=== PATIENT | male | born 1980 | race Caucasian/White ===

== ENCOUNTER 2021-03-14 09:10 | Emergency (ER) | payer OTHER, SELFPAY ==
--- NOTE | 2021-03-14 09:12 | ED.EAR ---
HPI - Ear Problem General Chief complaint: Ear Stated complaint: ear pain Time Seen by Provider: 03/14/21 09:13 Source: patient and RN notes reviewed History of Present Illness HPI Narrative: Patient is a 40-year-old male who presents the urgent care with complaints of left ear pain. Patient states it started approximately 3 or 4 days ago and he denies of any pain at this time but wants to make sure he does not have an infection . Patient states that he had multiple tubes placed in the bilateral ears when he was younger. Denies of any recent issues with ear infection. States that he did use some old hydrocortisone eardrops to the left ear over the last few days with improvements. Patient has also been taking Johanny-D, Flonase and ibuprofen. Denies of any fever, chills, nausea, vomiting, drainage. No other acute complaints. No acute distress noted. Patient aware of the plan of care. Some parts of this dictation were generated by voice recognition software and may contain typographical and/or grammatical inaccuracies. Related Data Home Medications Medication Instructions Recorded Confirmed fexofenadine-pseudoephedrine 1 tablet PO Q12H PRN 03/14/21 03/14/21 [Johanny-D 12 Hour] fluticasone propionate [Flonase 2 spray INTRANASAL DAILY 03/14/21 03/14/21 Allergy Relief] Allergies Allergy/AdvReac Type Severity Reaction Status Date / Time No Known Allergies Allergy Verified 03/14/21 09:23 Review of Systems Review of Systems: Narrative: CONSTITUTIONAL: Denies fever, chills, or sweats. EYES: Denies visual changes, redness, or discharge. ENT: Reports of left otalgia CARDIOVASCULAR: Denies chest pain, palpitations, or edema. RESPIRATORY: Denies cough or dyspnea. GASTROINTESTINAL: Denies abdominal pain, nausea, vomiting, or diarrhea. GENITOURINARY: Denies dysuria or hematuria. SKIN: Denies rash or itching. MUSCULOSKELETAL: Denies back pain, joint pain, or myalgia. NEUROLOGIC: Denies headache, numbness, or weakness. All other systems reviewed are negative, except as documented in HPI. PMFSH Comments At the time of my signature, I reviewed and agree with the nursing past medical, surgical, social, and family history. There is no relevant family history pertinent to the patient complaint. Exam Narrative: Exam Narrative: GENERAL: This is a well-nourished, well-developed patient, in no apparent distress. HEAD: normocephalic, atraumatic. EYES: PERRL. Sclera clear/white. Vision is grossly intact. EARS: External ears normal, auditory canals clear and without drainage, TMs normal without perforation. Hearing grossly intact. NOSE: External nose normal with no obvious nasal discharge, nares without redness, no rhinorrhea. THROAT: Mucous membranes moist, posterior pharynx clear. NECK: Neck supple CARDIOVASCULAR: Regular rate and rhythm without murmurs, gallops, or rubs. RESPIRATORY: Clear to auscultation. Breath sounds equal bilaterally. No wheezes, rales, or rhonchi. SKIN: warm, intact with no suspicious lesions or rash, good texture and turgor. NEURO: awake, alert, and oriented to person, place and time. There were no obvious focal neurologic abnormalities. EXTREMITIES: No clubbing, cyanosis, or edema. Course Vital Signs Vital signs: Vital Signs Temperature 99 F 03/14/21 09:15 Pulse Rate 86 03/14/21 09:15 Respiratory Rate 18 03/14/21 09:15 Blood Pressure 124/79 03/14/21 09:15 Pulse Oximetry 100 03/14/21 09:15 Temperature 99 F 03/14/21 09:15 Pulse Rate 86 03/14/21 09:15 Respiratory Rate 18 03/14/21 09:15 Blood Pressure 124/79 03/14/21 09:15 Pulse Oximetry 100 03/14/21 09:15 Reviewed Medical Decision Making MDM Narrative Medical decision making narrative: Advised the patient to continue using his Johanny-D as well as Flonase nasal spray. Use Tylenol/ibuprofen as needed for pain. Do not put anything in the ear such as eardrops, peroxide, Q-tips. There is no ear infection noted to t
[2021-03-14 09:15] VITALS: BP 124/79; PULSE 86; RESP 18; TEMP 37.2; O2SAT 100
== END 2021-03-14 09:29 | disposition home or self-care (01) ==
PROVIDERS: Emergency Provider Nurse Practitioner Family
DX: H92.02 Otalgia, left ear (principal)
CPT/HCPCS: 99211; G0463

== ENCOUNTER 2021-03-27 15:09 | Emergency (ER) | payer SELFPAY ==
[2021-03-27 15:14] VITALS: BP 113/81; PULSE 79; RESP 20; TEMP 36.8; O2SAT 99
--- NOTE | 2021-03-27 16:04 | ED.URI ---
HPI - URI/Sore Throat General Chief Complaint: Upper Respiratory Infection Stated Complaint: Possible left Ear infection and congestion Time Seen by Provider: 03/27/21 15:52 Source: patient and RN notes reviewed Mode of arrival: ambulatory Limitations: no limitations History of Present Illness HPI Narrative: Patient presents today complaining of left ear pain since this morning. Denies any additional symptoms to include cough, sore throat, fever, congestion. Currently rates his pain 3/10. Patient normally takes Johanny-D and Flonase for his seasonal allergies. History of ear tubes as a child. Denies any drainage or decreased hearing. MD elicited complaint: other (Ear pain) Related Data Home Medications Medication Instructions Recorded Confirmed fexofenadine-pseudoephedrine 1 tablet PO Q12H PRN 03/14/21 03/14/21 [Johanny-D 12 Hour] fluticasone propionate [Flonase 2 spray INTRANASAL DAILY 03/14/21 03/14/21 Allergy Relief] Allergies Allergy/AdvReac Type Severity Reaction Status Date / Time No Known Allergies Allergy Verified 03/14/21 09:23 Review of Systems Review of Systems: Narrative: CONSTITUTIONAL: Denies body aches, fever, chills, or sweats. EYES: Denies visual changes, redness, or discharge. ENT: Denies rhinorrhea, congestion, sore throat. + Left ear pain CARDIOVASCULAR: Denies chest pain, palpitations, or edema. RESPIRATORY: Denies cough or dyspnea. GASTROINTESTINAL: Denies abdominal pain, nausea, vomiting, or diarrhea. GENITOURINARY: Denies dysuria or hematuria. SKIN: Denies rash, itching, or wounds. MUSCULOSKELETAL: Denies back pain, joint pain, or myalgia. NEUROLOGIC: Denies headache, numbness, tingling, or weakness. PSYCH: Denies depression or anxiety. [facility] Past Medical History Medical History (Updated 03/27/21 @ 16:08 by Ailyn Diallo, GI, BC) Seasonal allergies Surgical History Surgical History (Updated 03/27/21 @ 16:06 by Ailyn Diallo, GI, ) History of adenoidectomy History of placement of ear tubes Comments At time of signature, I have reviewed and agree with nursing past medical, surgical, social and family history unless otherwise noted. Please see nursing chart for further information. There is no relevant family history pertinent to the presenting complaint Exam Narrative: Exam Narrative: GENERAL: Well-appearing, well-nourished, and in no acute distress. HEAD: Normocephalic, atraumatic. EYES: EOMI. No redness or drainage. Conjunctivae normal. ENT: Mucous membranes pink and moist. Nares clear. No rhinorrhea. Right TM normal. Left TM retracted without signs of infection.. Throat normal. Uvula midline. NECK: Normal AROM. Supple. No lymphadenopathy. CHEST: No respiratory distress. EXTREMITIES: Normal range of motion. No edema. SKIN: Warm, dry, no rash. Capillary refill normal. Normal skin turgor. NEURO: No focal deficits. Alert and oriented x3. Gait steady. PSYCH: Normal affect. No signs of depression or anxiety. Course Vital Signs Vital signs: Vital Signs Temperature 98.3 F 03/27/21 15:14 Pulse Rate 79 03/27/21 15:14 Respiratory Rate 20 03/27/21 15:14 Blood Pressure 113/81 03/27/21 15:14 Pulse Oximetry 99 03/27/21 15:14 Temperature 98.3 F 03/27/21 15:14 Pulse Rate 79 03/27/21 15:14 Respiratory Rate 20 03/27/21 15:14 Blood Pressure 113/81 03/27/21 15:14 Pulse Oximetry 99 03/27/21 15:14 Reviewed. Pt has been instructed to follow up with his PCP regarding his elevated blood pressure today. MDM - URI/Sore Throat Differential Diagnosis Differential diagnosis: Likely upper respiratory infection, otitis media and other (Otitis externa, ruptured TM, serous otitis, eustachian tube dysfunction, cerumen impaction) Critical Care Time Critical Care Time Critical Care Time: No Discharge Plan Discharge Clinical Impression: Retracted tympanic membrane Qualifiers: Laterality: left Qualified Code(s): H73.892 - Oth
== END 2021-03-27 16:10 | disposition home or self-care (01) ==
PROVIDERS: Emergency Provider Nurse Practitioner
DX: H73.892 Other specified disorders of tympanic membrane, left ear (principal)
CPT/HCPCS: 99211; G0463

== ENCOUNTER 2021-04-18 13:12 | Emergency (ER) | payer OTHER, SELFPAY ==
[2021-04-18 13:23] VITALS: BP 116/73; PULSE 87; RESP 16; TEMP 37.1; O2SAT 98
--- NOTE | 2021-04-18 14:17 | ED.URI ---
HPI - URI/Sore Throat General Chief Complaint: Upper Respiratory Infection Stated Complaint: Possible sinus infection and left Ear infection Time Seen by Provider: 04/18/21 13:50 Source: patient, RN notes reviewed and old records reviewed Mode of arrival: ambulatory Limitations: no limitations History of Present Illness HPI Narrative: 40-year-old male who presents to [facility] with complaints of sinus drainage and congestion and pain to the left ear for one day duration. Patient states has a history of sinus allergies and also sinus infections has not been any antibiotics in the past 60 days.. He states that he takes daily allergy medication and also Flonase nasal spray. He reports frontal headache which he rates as 5/10 aching with pressure and left ear pain as sharp and aching. Patient reports past history of ear infections and previous ear tubes, no recent swimming. Has not had COVID vaccinations. MD elicited complaint: rhinorrhea, nasal congestion and other (left ear) Pertinent past history: sinusitis, seasonal allergies and other (tobacco abuse) Related Data Home Medications Medication Instructions Recorded Confirmed fexofenadine-pseudoephedrine 1 tablet PO Q12H PRN 03/14/21 04/18/21 [Johanny-D 12 Hour] fluticasone propionate [Flonase 2 spray INTRANASAL DAILY 03/14/21 04/18/21 Allergy Relief] Allergies Allergy/AdvReac Type Severity Reaction Status Date / Time No Known Allergies Allergy Verified 04/18/21 13:49 Review of Systems Review of Systems: CONSTITUTIONAL: Denies fever, chills, or sweats. EYES: Denies visual changes, redness, or discharge. ENT: Positive rhinorrhea, congestion, no sore throat,positive left ear otalgia. CARDIOVASCULAR: Denies chest pain, palpitations, or edema. RESPIRATORY: Denies cough or dyspnea. GASTROINTESTINAL: Denies abdominal pain, nausea, vomiting, or diarrhea. GENITOURINARY: Denies dysuria or hematuria. SKIN: Denies rash or itching. MUSCULOSKELETAL: Denies back pain, joint pain, or myalgia. NEUROLOGIC:Positive frontal headache and pressure,no numbness, or weakness. PSYCHIATRIC: Denies anxiety or depression. All systems reviewed & are unremarkable except as noted in HPI and below PMFSH Past Medical History Medical History (Updated 04/23/21 @ 09:34 by Tavia Wei NP) Ear infection Seasonal allergies Sinusitis Surgical History Surgical History History of adenoidectomy History of placement of ear tubes Family History Family History (Updated 04/18/21 @ 14:33 by Tavia Wei NP) Legal Guardian No problems noted. Grandparent Diabetes mellitus Heart disease Hypertension Breast cancer Throat cancer Social History Social History (Updated 04/23/21 @ 09:31 by Tavia Wei NP) Smoking status: Current every day smoker Tobacco type: cigarettes Additional smoking assessment comments: one pack a week Alcohol intake: current Alcohol use details: social Substance use: never Living arrangements: with family Gender identity (if verbalized by the patient): Male Comments At time of signature, agree with nursing past medical, surgical, social and family history. There is no relevant family history pertinent to the presenting complaint Exam Narrative: GENERAL: Well-appearing, well-nourished, and in no acute distress. HEAD: Normocephalic, atraumatic. EYES: PERRLA and EOMI. ENT: Nares red with swollen turbinates, clear rhinorrhea no epistaxis. Mucous membranes moist.Right TM normal with good light reflex, left TM red and bulging with no drainage noted, throat red with no lesions or exudates, no tonsil enlargement post nasal drainage present. NECK: Supple.no lymphadenopathy CHEST: Clear to auscultation. No respiratory distress.SAO2 98% on room air HEART: Regular rate and rhythm. No murmur heard. Normal peripheral pulses. ABDOMEN: Soft, nontender, nondistended, normal active love
== END 2021-04-18 14:30 | disposition home or self-care (01) ==
PROVIDERS: Emergency Provider Registered Nurse
DX: J06.9 Acute upper respiratory infection, unspecified (principal); H65.02 Acute serous otitis media, left ear
CPT/HCPCS: 99213; G0463

== ENCOUNTER 2021-06-29 16:50 | Emergency (ER) | payer OTHER, SELFPAY ==
[2021-06-29 16:55] VITALS: BP 106/78; PULSE 73; RESP 18; TEMP 37; O2SAT 100
--- NOTE | 2021-06-29 17:03 | ED.URI ---
HPI - URI/Sore Throat General Chief Complaint: Ear Stated Complaint: ear or sinus infection Time Seen by Provider: 06/29/21 17:09 Source: patient and RN notes reviewed Mode of arrival: ambulatory Limitations: no limitations History of Present Illness HPI Narrative: 40-year-old male presents with concern for right ear pain, nasal congestion, runny nose. Reports symptoms have started 2 to 3 days ago. He denies fever, body aches, chills, sweats. Reports he has been taking Johanny-D, Flonase with little relief. MD elicited complaint: other (Ear pain) Related Data Allergies Allergy/AdvReac Type Severity Reaction Status Date / Time No Known Allergies Allergy Verified 06/29/21 16:57 Review of Systems Review of Systems: CONSTITUTIONAL: Denies malaise, chills, sweats, or fever. EYES: Denies visual changes, redness, or discharge. ENT: Reports rhinorrhea, congestion, sinus pain, otalgia. Denies sore throat. Denies drainage from the ear. CARDIOVASCULAR: Denies chest pain, palpitations, or edema. RESPIRATORY: Denies cough or dyspnea. GASTROINTESTINAL: Denies abdominal pain, nausea, vomiting, diarrhea SKIN: Denies rash or itching. MUSCULOSKELETAL: Denies myalgia. NEUROLOGIC: Denies headache. All systems reviewed & are unremarkable except as noted in HPI and below PMFSH Past Medical History Medical History (Updated 06/29/21 @ 17:17 by Melissa Ng NP) Ear infection Seasonal allergies Sinusitis Surgical History Surgical History History of adenoidectomy History of placement of ear tubes Family History Family History (Updated 04/18/21 @ 14:33 by Tavia Wei NP) Legal Guardian No problems noted. Grandparent Diabetes mellitus Heart disease Hypertension Breast cancer Throat cancer Social History Social History (Updated 04/23/21 @ 09:31 by Tavia Wei NP) Smoking status: Current every day smoker Tobacco type: cigarettes Additional smoking assessment comments: one pack a week Alcohol intake: current Alcohol use details: social Substance use: never Gender identity (if verbalized by the patient): Male Comments At time of signature, agree with nursing past medical, surgical, social and family history. There is no relevant family history pertinent to the presenting complaint Exam Narrative: GENERAL: Well-appearing, well-nourished, and in no acute distress. HEAD: Normocephalic EYES: PERRLA, conjunctivae clear ENT: Nares clear, turbinates edematous and erythematous, clear discharge. Mucous membranes moist. TM pearly rosa with dull light reflex on the left, TM bulging and purulent on the right; no tragal tenderness. Oropharynx not erythematous without lesions. Tonsils not enlarged and without exudate, no drooling, no hoarseness, no trismus, uvula midline. NECK: Supple. No lymphadenopathy CHEST: Clear to auscultation, breath sounds equal. No wheezing, rhonchi, rales, or stridor. No respiratory distress, speaks in full sentences. HEART: Regular rate and rhythm. No murmur heard. SKIN: Warm, dry, no rash. NEURO: Alert and oriented x3. PSYCH: Normal mood and affect Course Course Emergency Course: Patient is aware of diagnosis, understands and agrees to treatment plan. Anticipatory guidance given. Patient agrees to follow-up as directed and is aware of reasons to seek care at the emergency department. Portions of this record may have been created with voice recognition software Vital Signs Vital signs: Vital Signs Temperature 98.6 F 06/29/21 16:55 Pulse Rate 73 06/29/21 16:55 Respiratory Rate 18 06/29/21 16:55 Blood Pressure 106/78 06/29/21 16:55 Pulse Oximetry 100 06/29/21 16:55 Temperature 98.6 F 06/29/21 16:55 Pulse Rate 73 06/29/21 16:55 Respiratory Rate 18 06/29/21 16:55 Blood Pressure 106/78 06/29/21 16:55 Pulse Oximetry 100 06/29/21 16:55 Reviewed. MDM - URI/Sore Throat MDM
[2021-06-29 17:06] VITALS: BP 106/78; PULSE 73; RESP 18; TEMP 37; O2SAT 100
== END 2021-06-29 17:30 | disposition home or self-care (01) ==
PROVIDERS: Emergency Provider Nurse Practitioner
DX: H66.001 Acute suppurative otitis media without spontaneous rupture of ear drum, right ear (principal); F17.210 Nicotine dependence, cigarettes, uncomplicated
CPT/HCPCS: 99213; G0463

== ENCOUNTER 2021-07-11 16:49 | Emergency (ER) | payer OTHER, SELFPAY ==
[2021-07-11 16:50] VITALS: BP 126/79; PULSE 77; RESP 20; TEMP 36.6; O2SAT 100
[2021-07-11 17:02] VITALS: BP 126/79; PULSE 77; RESP 20; TEMP 36.6; O2SAT 100
--- NOTE | 2021-07-11 17:04 | ED.URI ---
HPI - URI/Sore Throat General Chief Complaint: Upper Respiratory Infection Stated Complaint: sinus pressure and left ear pain Time Seen by Provider: 07/11/21 17:04 Source: patient and RN notes reviewed History of Present Illness HPI Narrative: Patient is a 40-year-old male who presents the urgent care with complaints of left ear pain. Patient states that the sinus pressure has resolved but it was into Friday morning. Patient states that he had a subjective fever over the weekend but currently denies of any known fever, nausea, vomiting. Patient was treated for a right ear infection at our facility on 29 June and states that he did complete the Augmentin however he did not take the Medrol Dosepak. No other acute complaints. No acute distress noted. Patient aware of the plan of care. Some parts of this dictation were generated by voice recognition software and may contain typographical and/or grammatical inaccuracies. Related Data Home Medications Medication Instructions Recorded Confirmed No Home Medications 07/11/21 07/11/21 Allergies Allergy/AdvReac Type Severity Reaction Status Date / Time No Known Allergies Allergy Verified 07/11/21 17:01 Review of Systems Review of Systems: CONSTITUTIONAL: Denies fever, chills, or sweats. EYES: Denies visual changes, redness, or discharge. ENT: Denies rhinorrhea, congestion, sore throat. Reports of left otalgia CARDIOVASCULAR: Denies chest pain, palpitations, or edema. RESPIRATORY: Denies cough or dyspnea. GASTROINTESTINAL: Denies abdominal pain, nausea, vomiting, or diarrhea. GENITOURINARY: Denies dysuria or hematuria. SKIN: Denies rash or itching. MUSCULOSKELETAL: Denies back pain, joint pain, or myalgia. NEUROLOGIC: Denies headache, numbness, or weakness. All other systems reviewed are negative, except as documented in HPI. [facility] Past Medical History Medical History (Updated 07/11/21 @ 17:21 by GI Jenkins) Ear infection Seasonal allergies Sinusitis Surgical History Surgical History History of adenoidectomy History of placement of ear tubes Family History Family History (Updated 04/18/21 @ 14:33 by Tavia Wei NP) Legal Guardian No problems noted. Grandparent Diabetes mellitus Heart disease Hypertension Breast cancer Throat cancer Social History Social History (Updated 04/23/21 @ 09:31 by Tavia Wei NP) Smoking status: Current every day smoker Tobacco type: cigarettes Additional smoking assessment comments: one pack a week Alcohol intake: current Alcohol use details: social Substance use: never Gender identity (if verbalized by the patient): Male Comments At the time of my signature, I reviewed and agree with the nursing past medical, surgical, social, and family history. There is no relevant family history pertinent to the patient complaint. Exam Narrative: GENERAL: This is a well-nourished, well-developed patient, in no apparent distress. HEAD: normocephalic, atraumatic. EYES: PERRL. Sclera clear/white. Vision is grossly intact. EARS: External ears normal, auditory canals clear and without drainage, TMs normal without perforation. Hearing grossly intact. NOSE: External nose normal with no obvious nasal discharge, nares without redness, no rhinorrhea. THROAT: Mucous membranes moist, moderate erythema noted to posterior oropharynx with bilateral exudate and moderate postnasal drainage NECK: Neck supple CARDIOVASCULAR: Regular rate and rhythm without murmurs, gallops, or rubs. RESPIRATORY: Clear to auscultation. Breath sounds equal bilaterally. No wheezes, rales, or rhonchi. SKIN: warm, intact with no suspicious lesions or rash, good texture and turgor. NEURO: awake, alert, and oriented to person, place and time. There were no obvious focal neurologic abnormalities. EXTREMITIES: No clubbing, cyanosis, or edema. Course Vital Signs Vi
== END 2021-07-11 17:22 | disposition home or self-care (01) ==
PROVIDERS: Emergency Provider Nurse Practitioner Family
DX: H92.02 Otalgia, left ear (principal); F17.210 Nicotine dependence, cigarettes, uncomplicated
CPT/HCPCS: 99211; G0463

== ENCOUNTER 2021-07-13 14:54 | Emergency (ER) | payer OTHER, SELFPAY ==
[2021-07-13 14:58] VITALS: BP 101/72; PULSE 73; RESP 14; TEMP 36.9; O2SAT 99
--- NOTE | 2021-07-13 15:02 | ED.URI ---
HPI - URI/Sore Throat General Chief Complaint: Upper Respiratory Infection Stated Complaint: Sinus infection. Time Seen by Provider: 07/13/21 14:55 Source: patient and RN notes reviewed History of Present Illness HPI Narrative: Patient is a 40-year-old male who presents the urgent care with complaints of left otalgia. Patient was seen at the facility several times within the last month. Patient was seen on June 29 and given Augmentin and a Medrol Dosepak. Patient presented on July 11 and stated that he did complete the Augmentin but had not taken the Medrol Dosepak. Patient was then told to complete the Medrol Dosepak for a sinusitis symptoms. Patient has now returned again to the urgent care with complaints of left ear pain/popping. Patient states that he also has a slight nonproductive cough without fever, nausea, vomiting. Patient has been taking ibuprofen, Tylenol and cough medication for his symptoms. No other acute complaints. No acute distress noted. Patient aware of the plan of care. Some parts of this dictation were generated by voice recognition software and may contain typographical and/or grammatical inaccuracies. Related Data Home Medications Medication Instructions Recorded Confirmed No Home Medications 07/11/21 07/11/21 Allergies Allergy/AdvReac Type Severity Reaction Status Date / Time No Known Allergies Allergy Verified 07/11/21 17:01 Review of Systems Review of Systems: CONSTITUTIONAL: Denies fever, chills, or sweats. EYES: Denies visual changes, redness, or discharge. ENT: Denies rhinorrhea, congestion, sore throat. Reports of left otalgia CARDIOVASCULAR: Denies chest pain, palpitations, or edema. RESPIRATORY: Reports of nonproductive cough without dyspnea GASTROINTESTINAL: Denies abdominal pain, nausea, vomiting, or diarrhea. GENITOURINARY: Denies dysuria or hematuria. SKIN: Denies rash or itching. MUSCULOSKELETAL: Denies back pain, joint pain, or myalgia. NEUROLOGIC: Denies headache, numbness, or weakness. All other systems reviewed are negative, except as documented in HPI. [facility] Past Medical History Medical History (Updated 07/13/21 @ 15:18 by GI Jenkins) Ear infection Seasonal allergies Sinusitis Surgical History Surgical History History of adenoidectomy History of placement of ear tubes Family History Family History (Updated 04/18/21 @ 14:33 by Tavia Wei NP) Legal Guardian No problems noted. Grandparent Diabetes mellitus Heart disease Hypertension Breast cancer Throat cancer Social History Social History (Updated 04/23/21 @ 09:31 by Tavia Wei NP) Smoking status: Current every day smoker Tobacco type: cigarettes Additional smoking assessment comments: one pack a week Alcohol intake: current Alcohol use details: social Substance use: never Gender identity (if verbalized by the patient): Male Comments At the time of my signature, I reviewed and agree with the nursing past medical, surgical, social, and family history. There is no relevant family history pertinent to the patient complaint. Exam Narrative: GENERAL: This is a well-nourished, well-developed patient, in no apparent distress. HEAD: normocephalic, atraumatic. EYES: PERRL. Sclera clear/white. Vision is grossly intact. EARS: External ears normal, auditory canals clear and without drainage, TMs normal without perforation. Hearing grossly intact. NOSE: External nose normal with no obvious nasal discharge, nares without redness, clear rhinorrhea. THROAT: Mucous membranes moist, posterior pharynx clear. Mild postnasal drainage NECK: Neck supple, non-tender without lymphadenopathy, masses or thyromegaly. CARDIOVASCULAR: Regular rate and rhythm without murmurs, gallops, or rubs. RESPIRATORY: Clear to auscultation. Breath sounds equal bilaterally. No wheezes, rales, or rhonchi. SKIN: warm, in
== END 2021-07-13 15:27 | disposition home or self-care (01) ==
PROVIDERS: Emergency Provider Nurse Practitioner Family
DX: H92.02 Otalgia, left ear (principal); F17.210 Nicotine dependence, cigarettes, uncomplicated
CPT/HCPCS: 99211; G0463